=== PATIENT | male | born 1995 | race Caucasian/White ===

== ENCOUNTER 2019-10-13 00:08 | Emergency (ER) | payer SELFPAY ==
[2019-10-13 00:38] VITALS: BP 117/57
[2019-10-13] MEDS ORDERED: AMOXICILLIN TRIHYDRATE 500 MG CAPSULE PO ONE (00:46)
--- NOTE | 2019-10-13 00:56 | ER Document Report ---
Entered by LANIE EGAN SCRIBE 10/13/19 0051 Acting as scribe for:NAT CHASE DO ED General - General Chief Complaint: Rash Stated Complaint: RASH,SORE THROAT Time Seen by Provider: 10/13/19 00:33 Mode of Arrival: Ambulatory Information source: Patient Notes: This 24 year old otherwise healthy male patient presents to the ED today with complaints of a x1 day history of sore throat and erythematous rash to his arms, legs, and torso. Patient states that the rash feels similar to when he had scarlet fever. Denies any recent travel, sick contacts, fever, chest pain, or shortness of breath. TRAVEL OUTSIDE OF THE [place] IN LAST 30 DAYS: No Past Medical History - General Information source: Patient - Social History Smoking Status: Unknown if Ever Smoked Cigarette use (# per day): No Chew tobacco use (# tins/day): No Smoking Education Provided: No Family History: Reviewed & Not Pertinent Patient has suicidal ideation: No Patient has homicidal ideation: No - Immunizations Hx Diphtheria, Pertussis, Tetanus Vaccination: No Review of Systems - Review of Systems Constitutional: See HPI. denies: Fever EENT: See HPI, Throat pain Cardiovascular: See HPI. denies: Chest pain Respiratory: See HPI. denies: Short of breath Gastrointestinal: No symptoms reported Genitourinary: No symptoms reported Male Genitourinary: No symptoms reported Musculoskeletal: No symptoms reported Skin: See HPI, Rash Hematologic/Lymphatic: No symptoms reported Neurological/Psychological: No symptoms reported -: Yes All other systems reviewed and negative Physical Exam - Vital signs Vitals: Temp Pulse Resp BP Pulse Ox 98.0 F 56 L 18 117/57 L 97 10/13/19 00:36 10/13/19 00:36 10/13/19 00:36 10/13/19 00:36 10/13/19 00:36 - General General appearance: Alert, Other In distress: None - HEENT Head: Normocephalic, Atraumatic Eyes: Normal Pupils: PERRL Pharynx: Erythema Neck: Shotty nodes - Shotty anterior cervical nodes - Respiratory Respiratory status: No respiratory distress Chest status: Nontender Breath sounds: Normal Chest palpation: Normal - Cardiovascular Rhythm: Regular Heart sounds: Normal auscultation Murmur: No Friction rub: No Gallop: None auscultated - Abdominal Inspection: Normal Distension: No distension Bowel sounds: Normal Tenderness: Nontender - Abdomen soft Organomegaly: No organomegaly - Back Back: Normal, Nontender - Extremities General upper extremity: Normal inspection General lower extremity: Normal inspection. No: Edema - Neurological Neuro grossly intact: Yes Orientation: AAOx4 [place] Coma Scale Eye Opening: Spontaneous [place] Coma Scale Verbal: Oriented [place] Coma Scale Motor: Obeys Commands [place] Coma Scale Total: 15 - Psychological Associated symptoms: Normal affect, Normal mood - Skin Skin irregularity: Rash - Fine erythematous rash that easily blanches, may represents strep Course - Vital Signs Vital signs: Temp Pulse Resp BP Pulse Ox 98.0 F 56 L 18 117/57 L 97 10/13/19 00:36 10/13/19 00:36 10/13/19 00:36 10/13/19 00:36 10/13/19 00:36 Discharge - Discharge Clinical Impression: Pharyngitis Qualifiers: Pharyngitis/tonsillitis etiology: unspecified etiology Qualified Code(s): J02.9 - Acute pharyngitis, unspecified Condition: Stable Disposition: HOME, SELF-CARE Instructions: Sore Throat ([facility]) Additional Instructions: Rest, fluids, please finish the antibiotics. Return here for fever with shortness of breath or other problems or concerns. Prescriptions: Amoxicillin Trihydrate [Amoxil 500 mg Capsule] 500 mg PO TID #30 cap Forms: Smoking Cessation Education, Return to Work I personally performed the services described in the documentation, reviewed and edited the documentation which was dictated to the scribe in my presence, and it accurately records my words and actions.
== END 2019-10-13 01:59 | disposition home or self-care (01) ==
LOC: ER 00:08
DX: J02.9 Acute pharyngitis, unspecified (principal); R21 Rash and other nonspecific skin eruption
CPT/HCPCS: 36415; 87070; 87880; 99283

== ENCOUNTER 2019-11-02 20:04 | Emergency (ER) | payer SELFPAY ==
[2019-11-02] MEDS ORDERED: DEXAMETHASONE 4 MG TABLET PO ONE (20:44)
--- NOTE | 2019-11-02 20:50 | ER Document Report ---
HPI - HPI Time Seen by Provider: 11/02/19 20:36 Pain Level: Denies Notes: CHIEF COMPLAINT: Pruritic rash for 3 to 4 weeks HPI: 24-year-old male presenting with a pruritic rash for 3 to 4 weeks starts as 1 patch on the left inner hip region now spreading across the trunk and upper and lower extremities. States he was seen 3 weeks ago for this told he might have scarlet fever but never heard back and never checked on his cultures. States he is still taking amoxicillin 3 weeks later without resolution of the rash. No fever. Has not followed up with a primary care provider for reevaluation of this issue ROS: See HPI - all other systems were reviewed and are otherwise negative Constitutional: no fever Eyes: no drainage, no blurred vision ENT: no runny nose, no sore throat Cardiovascular: no chest pain Resp: no SOB, no cough GI: no vomiting, no diarrhea, no abdominal pain : no dysuria Integumentary: + rash Allergy: no hives Musculoskeletal: no extremity pain or swelling Neurological: no numbness/tingling, no weakness MEDICATIONS: I agree with the patient medications as charted by the RN. ALLERGIES: I agree with the allergies as charted by the RN. PAST MEDICAL HISTORY/PAST SURGICAL HISTORY: Reviewed and agree as charted by RN. SOCIAL HISTORY: Reviewed and agree as charted by RN. FAMILY HISTORY: No significant familial comorbid conditions directly related to patient complaint EXAM: Reviewed vital signs as charted by RN. CONSTITUTIONAL: Alert and oriented and responds appropriately to questions. Well-appearing; well-nourished HEAD: Normocephalic; atraumatic EYES: PERRL; Conjunctivae clear, sclerae non-icteric ENT: normal nose; no rhinorrhea; moist mucous membranes; pharynx without lesions noted, no uvula edema or deviation, no tonsillar hypertrophy, phonation normal NECK: Supple without meningismus; non-tender; no cervical lymphadenopathy, no masses CARD: RRR; no murmurs, no clicks, no rubs, no gallops; symmetric distal pulses RESP: Normal chest excursion without splinting or tachypnea; breath sounds clear and equal bilaterally; no wheezes, no rhonchi, no rales, pulse oximetry ABD/GI: Normal bowel sounds; non-distended; soft, non-tender, no rebound, no guarding; no palpable organomegaly or masses. BACK: The back appears normal and is non-tender to palpation, there is no CVA tenderness EXT: Normal ROM in all joints; non-tender to palpation; no cyanosis, no effusions, no edema SKIN: Normal color for age and race; warm; dry; good turgor; there is a diffuse raised mildly erythematous rash across the torso and proximal lower extremities in a [place] tree pattern. No petechia no purpura no vesicles NEURO: Moves all extremities equally; Motor and sensory function intact PSYCH: The patient's mood and manner are appropriate. Grooming and personal hygiene are appropriate. MDM: 24-year-old male with what appears to be pityriasis. Rash is been ongoing for 3 to 4 weeks not resolving with antibiotics. I did review his records and patient had negative strep test and culture [address] patient on Atarax for itching, given a one-time dose of Decadron to help with the inflammation and itching follow-up with primary care provider Past Medical History - Social History Smoking Status: Current Every Day Smoker Chew tobacco use (# tins/day): No Frequency of alcohol use: None Drug Abuse: None Family History: Reviewed & Not Pertinent - Immunizations Hx Diphtheria, Pertussis, Tetanus Vaccination: No Vertical Provider Document - INFECTION CONTROL TRAVEL OUTSIDE OF THE [place] IN LAST 30 DAYS: No Course - Vital Signs Vital signs: Temp Pulse Resp BP Pulse Ox 97.9 F 56 L 16 111/58 L 100 11/02/19 20:33 11/02/19 20:09 11/02/19 20:09 11/02/19 20:09 11/02/19 20:09 Discharge - Discharge Clinical Impression: Pityriasis in adult Condition: Stable Disposition: HOME, SELF-CARE Instructions: Pityriasis Rosea ([facility]) Additional Instructions: Take the Atarax for itching no driving if taking his medication as it can make you drowsy. Follow-up with a primary care provider for reevaluation of symptoms call for appointment. You should stop taking the antibiotics Prescriptions: Hydroxyzine Pamoate [Vistaril 25 mg Capsule] 25 mg PO Q6HP PRN #30 capsule PRN Reason: Referrals: SANDER MADDOX MD [[facility]] - Follow up as needed
[2019-11-03 05:38] VITALS: BP 117/75
== END 2019-11-02 21:20 | disposition home or self-care (01) ==
LOC: ER 20:04
DX: L21.0 Seborrhea capitis (principal); F17.200 Nicotine dependence, unspecified, uncomplicated
CPT/HCPCS: 99282; J8540